=== PATIENT | male | born 1995 ===

== ENCOUNTER 2024-11-16 22:05 | Emergency (ER) | payer SELFPAY ==
[2024-11-16 22:07] VITALS: BP 131/87; PULSE 100; RESP 14; TEMP 36.4; O2SAT 95
== END 2024-11-16 23:38 | disposition left against medical advice (07) ==
DX: Z86.73 Personal history of transient ischemic attack (TIA), and cerebral infarction without residual deficits (principal)
CPT/HCPCS: 99199